=== PATIENT | female | born 1985 | race Caucasian/White ===

== ENCOUNTER 2020-09-26 19:28 | Emergency (ER) | payer SELFPAY ==
--- NOTE | ~2020-09-26 | XR_ITS ---
EXAMINATION: XR knee LT min 4V EXAM DATE: 09/26/2020 20:05 INDICATION: Open injury on left patella, pain all over knee. Injury. Initial encounter. TECHNIQUE: Left knee frontal, crosstable lateral, orthogonal oblique projections for interpretation. There is no prior study for comparison. FINDINGS: No evidence osteochondral defect or joint body in the left knee joint. There are no acute fractures or dislocations identified. There is no subcutaneous gas. Probable identification of ant erior laceration. Intact patellar and quadriceps tendons. There are no radiopaque foreign bodies. N o joint effusion. IMPRESSION: 1. Left knee exam without acute osseous findings. 2. Probable anterior laceration identified. Reviewed, dictated and finalized at location A.
[2020-09-26 19:34] VITALS: BP 135/83; PULSE 110; RESP 21; TEMP 36.3; O2SAT 98
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
== END 2020-09-26 22:00 | disposition home or self-care (01) ==
PROVIDERS: Emergency Provider Emergency Medicine; PCP Family Medicine
DX: S81.012A Laceration without foreign body, left knee, initial encounter (principal); X99.0XXA Assault by sharp glass, initial encounter
CPT/HCPCS: 12002; 73564; 99283

== ENCOUNTER 2022-11-19 16:31 | Emergency (ER) | payer BC, SELFPAY ==
[2022-11-19 16:39] VITALS: BP 144/99; PULSE 103; RESP 18; TEMP 36.3; O2SAT 97
--- NOTE | 2022-11-19 16:51 | ED.EAR ---
HPI - Ear Problem General Chief complaint: Ear Stated complaint: Ear pain Time Seen by Provider: 11/19/22 17:11 Source: patient and RN notes reviewed Mode of arrival: ambulatory Limitations: no limitations History of Present Illness HPI Narrative: 36-year-old female presents with concern for left ear pain. She reports it is painful when she lays on it, she has had some drainage from it. She reports she has allergy symptoms, but has not had a cold recently. MD Complaint: ear pain Related Data Home Medications Medication Instructions Recorded Confirmed cholecalciferol (vitamin D3) 1,250 2,000 mcg PO WEEKLY 11/19/22 11/19/22 mcg (50,000 unit) tablet lisdexamfetamine 50 mg capsule 50 mg PO DAILY 11/19/22 11/19/22 (Vyvanse) loratadine 10 mg tablet (Claritin) 10 mg PO DAILY 11/19/22 11/19/22 ziprasidone HCl 20 mg capsule 20 mg PO DAILY 11/19/22 11/19/22 ziprasidone HCl 80 mg capsule 80 mg PO DAILY 11/19/22 11/19/22 Allergies Allergy/AdvReac Type Severity Reaction Status Date / Time bupropion [From Wellbutrin] Allergy Anaphylaxis Verified 11/19/22 16:52 Review of Systems Review of Systems: CONSTITUTIONAL: Denies malaise, chills, sweats, or fever. EYES: Denies visual changes, redness, or discharge. ENT: Reports rhinorrhea, congestion. Denies sinus pain, and sore throat. Reports left ear pain CARDIOVASCULAR: Denies chest pain, palpitations, or edema. RESPIRATORY: Denies cough. Denies dyspnea. GASTROINTESTINAL: Denies abdominal pain, nausea, vomiting, diarrhea SKIN: Denies rash or itching. MUSCULOSKELETAL: Denies myalgia. NEUROLOGIC: Denies headache. All systems reviewed & are unremarkable except as noted in HPI and below PMFSH Social History Social History Gender identity (if verbalized by the patient): Female Comments At time of signature, agree with nursing past medical, surgical, social and family history. There is no relevant family history pertinent to the presenting complaint Exam Narrative: GENERAL: Well-appearing, well-nourished, and in no acute distress. HEAD: Normocephalic EYES: PERRLA, conjunctivae clear ENT: Nares clear, turbinates edematous, clear discharge. Mucous membranes moist. Right tM pearly [place] with dull light reflex, left TM not visible due to cerumen impaction; no tragal tenderness. Oropharynx not erythematous without lesions. Tonsils not enlarged and without exudate, no drooling, no hoarseness, no trismus, uvula midline. NECK: Supple. No lymphadenopathy CHEST: Clear to auscultation, breath sounds equal. No wheezing, rhonchi, rales, or stridor. No respiratory distress, speaks in full sentences. HEART: Regular rate and rhythm. No murmur heard. SKIN: Warm, dry, no rash. NEURO: Alert and oriented x3. PSYCH: Normal mood and affect Course Course Emergency Course: Patient is aware of diagnosis, understands and agrees to treatment plan. Anticipatory guidance given. Patient agrees to follow-up as directed and is aware of reasons to seek care at the emergency department. Portions of this record may have been created with voice recognition software Level of Care: Express Care Visit Vital Signs Vital signs: Vital Signs Temperature 97.4 F L 11/19/22 16:39 Pulse Rate 103 H 11/19/22 16:39 Respiratory Rate 18 11/19/22 16:39 Blood Pressure 144/99 H 11/19/22 16:39 Pulse Oximetry 97 11/19/22 16:39 Oxygen Delivery Room Air 11/19/22 16:39 Temperature 97.4 F L 11/19/22 16:39 Pulse Rate 103 H 11/19/22 16:39 Respiratory Rate 18 11/19/22 16:39 Blood Pressure 144/99 H 11/19/22 16:39 Pulse Oximetry 97 11/19/22 16:39 Oxygen Delivery Room Air 11/19/22 16:39 Reviewed. Procedures Ear Wax Removal Left Ear: Ear Wax Removal Date: 11/19/22 Ear Wax Removal Time: 17:23 Cerumenolytic Used: other (Hydrogen peroxide) Results: Re-examined: cerumen removed completely TM Exam
== END 2022-11-19 17:51 | disposition home or self-care (01) ==
PROVIDERS: Emergency Provider Nurse Practitioner
DX: H61.22 Impacted cerumen, left ear (principal)
CPT/HCPCS: 69210; 99213; G0463